=== PATIENT | female | born 1985 | race Caucasian/White ===

== ENCOUNTER 2016-03-26 17:02 | Emergency (ER) | payer BC, OTHER ==
[~2016-03-26] VITALS: Ht 160 cm; Wt 62.2 kg
[~2016-03-26 17:02] MED LIST: ALBUAER2 INH; HYDRELX3 PO; IBUP-1121 PO; KFLS250100 PO
[2016-03-26 17:10] VITALS: TEMP 36.9; Ht 160 cm; Wt 62.2 kg
--- NOTE | 2016-03-26 17:37 | EMERGENCY ROOM VISIT NOTE ---
History Report prepared by Lizzeth: Eugenie Jaime Under the Supervision of: Dr. Rock Perez M.D. First contact with patient: 17:24 Chief Complaint: VAGINAL BLEEDING Stated Complaint: 9.5 WKS PREG,VAG BLEEDING W/CRAMPS History of Present Illness The patient is a 30 year old female who presents to the Emergency Room with complaints of constant vaginal bleeding that started 3.5 hours ago around 1400. The patient states that she bled through one pad and there was some blood on a second one. When the bleeding started, she had severe abdominal pain but she states that the pain is dull now. The patient is 9 weeks and this is her first . She denies any history of miscarriages or abortions. The patient's last normal menstrual period was on January 20. The patient has not received a ultrasound yet, but she did have a positive blood test. Source of History: patient Onset: 3.5 hours ago around 1400 Position: other (vagina) Quality: other (vaginal bleeding) Timing: constant Associated Symptoms: + abdominal pain Review of Systems See HPI for pertinent positives & negatives. A total of 10 systems reviewed and were otherwise negative. Past Medical & Surgical Medical Problems: (1) Asthma Family History Cancer Diabetes mellitus Heart disease Hypertension Social History Smoking Status: Never Smoker Smokeless Tobacco Use: No Alcohol Use: none Marital Status: Housing Status: lives with significant other Current/Historical Medications No Active Prescriptions or Reported Meds Allergies Coded Allergies: No Known Allergies (Verified Allergy, Unknown, 12/15/06) Physical Exam Vital Signs Date Time Temp Pulse Resp B/P Pulse Ox O2 Delivery O2 Flow Rate FiO2 03/26/16 20:15 60 16 106/68 97 03/26/16 19:02 61 03/26/16 18:55 65 18 115/70 100 Room Air 03/26/16 17:10 36.9 67 18 145/81 100 Room Air Physical Exam GENERAL: Patient is a healthy-appearing well-nourished female. HEAD: Normocephalic atraumatic EYES: Ocular movements intact pupils equal and react to light OROPHARYNX mucous membranes are moist no exudates present no erythema or edema present NECK: Supple no nuchal rigidity CHEST: Good equal expansion LUNGS: Clear and equal to auscultation CARDIAC: Normal S1 and S2 ABDOMEN: Soft nontender no guarding BACK: No CVA tenderness EXTREMITIES: No pain upon palpation normal muscle strength in all groups no clubbing cyanosis or edema NEURO: Patient is following commands is answering questions appropriately. Alert and oriented x3 Cranial Nerves 2-12 grossly intact Medical Decision & Procedures ER Provider Diagnostic Interpretation: US results as stated below per my review and radiologist interpretation: ULTRASOUND IMPRESSION: 1. Viable intrauterine gestation with estimated gestational age of 9 weeks and 5 days. Normal heart rate of 164 bpm. 2. Suspected uterine anomaly. The intrauterine gestational sac containing a fetus is located within a suspected right uterine horn and there is fluid within the suspected left uterine horn. A bicornuate uterus is favored although a septate uterus to be difficult to exclude and this should be assessed on subsequent ultrasound. Electronically signed by: Henri Chester M.D. 03/26/2016 6:34 PM Dictated Date/Time: 03/26/2016 6:25 PM Laboratory Results 03/26/16 17:34 Red Blood Count 4.10, Mean Corpuscular Volume 90.2, Mean Corpuscular Hemoglobin 31.2, Mean Corpuscular Hemoglobin Concent 34.6, Mean Platelet Volume 9.9, Neutrophils (%) (Auto) 66.2, Lymphocytes (%) (Auto) 25.3, Monocytes (%) (Auto) 5.9, Eosinophils (%) (Auto) 2.2, Basophils (%) (Auto) 0.2, Neutrophils # (Auto) 6.06, Lymphocytes # (Auto) 2.32, Monocytes # (Auto) 0.54, Eosinophils # (Auto) 0.20, Basophils # (Auto) 0.02 03/26/16 17:34 Test 03/26/16 17:34 03/26/16 17:39 White Blood Count 9.16 K/uL (4.8-10.8) Red Blood Count 4.10 M/uL (4.2-5.4) Hemoglobin 12.8 g/dL (12.0-16.0) Hematocrit 37.0 % (37-47) Mean Corpuscular Volume 90.2 fL (80-100) Mean Corpuscular Hemoglobin 31.2 pg (25-34) Mean Corpuscular Hemoglobin Concent 34.6 g/dl (32-36) Platelet Count 266 K/uL (130-400) Mean Platelet Volume 9.9 fL (7.4-10.4) Neutrophils (%) (Auto) 66.2 % Lymphocytes (%) (Auto) 25.3 % Monocytes (%) (Auto) 5.9 % Eosinophils (%) (Auto) 2.2 % Basophils (%) (Auto) 0.2 % Neutrophils # (Auto) 6.06 K/uL (1.4-6.5) Lymphocytes # (Auto) 2.32 K/uL (1.2-3.4) Monocytes # (Auto) 0.54 K/uL (0.11-0.59) Eosinophils # (Auto) 0.20 K/uL (0-0.5) Basophils # (Auto) 0.02 K/uL (0-0.2) RDW Standard Deviation 43.6 fL (36.4-46.3) RDW Coefficient of Variation 13.2 % (11.5-14.5) Immature Granulocyte % (Auto) 0.2 % Immature Granulocyte # (Auto) 0.02 K/uL (0.00-0.02) Prothrombin Time 11.1 SECONDS (9.0-12.0) Prothromb Time International Ratio 1.0 (0.9-1.1) Activated Partial Thromboplast Time 29.2 SECONDS (21.0-31.0) Partial Thromboplastin Ratio 1.1 Anion Gap 9.0 mmol/L (3-11) Est Creatinine Clear Calc Drug Dose 92.3 ml/min Estimated GFR () 127.2 Estimated GFR (Non- 109.7 BUN/Creatinine Ratio 16.0 (10-20) Calcium Level 8.5 mg/dl (8.5-10.1) Total Bilirubin 0.2 mg/dl (0.2-1) Aspartate Amino Transf (AST/SGOT) 19 U/L (15-37) Alanine Aminotransferase (ALT/SGPT) 15 U/L (12-78) Alkaline Phosphatase 50 U/L (45-117) Total Protein 6.8 gm/dl (6.4-8.2) Albumin 3.5 gm/dl (3.4-5.0) Globulin 3.3 gm/dl (2.5-4.0) Albumin/Globulin Ratio 1.1 (0.9-2) Human Chorionic Gonadotropin, Quant 310349 mIU/mL Urine Color RED Urine Appearance CLEAR (CLEAR) Urine pH 6.5 (4.5-7.5) Urine Specific [place] 1.000 (1.000-1.030) Urine Protein 2+ (NEG) Urine Glucose (UA) NEG (NEG) Urine Ketones NEG (NEG) Urine Occult Blood 3+ (NEG) Urine Nitrite NEG (NEG) Urine Bilirubin NEG (NEG) Urine Urobilinogen NEG (NEG) Urine Leukocyte Esterase SMALL (NEG) Urine WBC (Auto) 5-10 /hpf (0-5) Urine RBC (Auto) >30 /hpf (0-4) Urine Hyaline Casts (Auto) 0 /lpf (0-5) Urine Epithelial Cells (Auto) 10-20 /lpf (0-5) Urine Bacteria (Auto) NEG (NEG) Urine Test POS (NEG) Labs reviewed by ED physician. Medications Administered Medications (Trade) Dose Ordered Sig/Jules Route Start Time Stop Time Status Last Admin Dose Admin Acetaminophen (Tylenol Tab) 1,000 mg NOW STAT PO 03/26/16 19:55 03/26/16 19:56 DC 03/26/16 20:03 1,000 MG ED Course 172: Past medical records reviewed. The patient was evaluated in room A9. A complete history and physical examination was performed. 1853: Upon reexamination the patient is doing well. I discussed results and treatment plan with the patient. She verbalizes agreement and understanding. The patient is ready for discharge. 1858: I discussed the patient's case with Dr. Wilson - OB[employer]. She agreed with the treatment plan and said that the patient is well enough to follow-up in the office. Medical Decision Differential diagnosis: Etiologies such as ectopic , dysfunction uterine bleeding, bleeding dyscrasia, trauma, infection, as well as others were entertained. This is a 30-year-old female who presents emergency Department with vaginal bleeding. The patient is 9 weeks . She is O+. 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 I did discuss these findings with OB who asked that the patient follow-up as an outpatient. I strongly recommended bedrest for the patient while she was continuing to have vaginal bleeding. The patient did receive Tylenol here in the emergency department. Patient and had all their questions answered and will follow-up with OB. Consults Time Called: 1856 Consulting Physician: Dr. Wilson - OB[facility] Returned Call: 1858 I discussed the patient's case with Dr. Wilson - OB-[employer]. She agreed with the treatment plan and said that the patient is well enough to follow-up in the office. Impression Primary Impression: Vaginal bleeding before 22 weeks gestation Scribe Attestation The scribe's documentation has been prepared under my direction and personally reviewed by me in its entirety. I confirm that the note above accurately reflects all work, treatment, procedures, and medical decision making performed by me. Departure Information Dispostion Home / Self-Care Prescriptions No Active Prescriptions or Reported Meds Referrals No Doctor, Assigned (PCP) Forms HOME CARE DOCUMENTATION FORM, IMPORTANT VISIT INFORMATION, WORK / SCHOOL INSTRUCTIONS Patient Instructions Bleeding Early Preg, My [facility] Additional Instructions Bedrest while having vag bleeding Follow up with DR Wilson's office You have been examined and treated today on an emergency basis only. This is not a substitute for, or an effort to provide, complete comprehensive medical care. It is impossible to recognize and treat all injuries or illnesses in a single emergency department visit. It is therefore important that you follow up closely with Dr Roberts. Call as soon as possible for an appointment. Thank you for your time and consideration. I look forward to speaking with you again soon. Please don't hesitate to call us if you have any questions.
[2016-03-26 17:45] LABS: BASO % 0.2 %; BASO ABS # 0.02 K/uL (0-0.2); COMPLETE YES; EOS % 2.2 %; IG% 0.2 %; LYMPH % 25.3 %; LYMPH ABS # 2.32 K/uL (1.2-3.4); MEAN CELL VOLUME 90.2 fL (80-100); MEAN CORPUSCULAR HEMOGLOBIN 31.2 pg (25-34); MEAN CORPUSCULAR HGB CONC 34.6 g/dl (32-36); MEAN PLATELET VOLUME 9.9 fL (7.4-10.4); MONO % 5.9 %; NEUT % 66.2 %; PLATELET COUNT 266 K/uL (130-400); WHITE BLOOD COUNT 9.16 K/uL (4.8-10.8)
[2016-03-26 17:54] LABS: PARTIAL THROMBOPLASTIN RATIO 1.1; PROTHROMBIN TIME (PATIENT) 11.1 SECONDS (9.0-12.0)
[2016-03-26 18:10] LABS: CALCIUM 8.5 mg/dl (8.5-10.1); CREATININE 0.73 mg/dl (0.60-1.20); POTASSIUM 3.4 mmol/L (3.5-5.1)
[2016-03-26 18:12] LABS: ALB/GLOB RATIO 1.1 (0.9-2)
[2016-03-26 18:13] LABS: URINE APPEARANCE CLEAR (CLEAR); URINE BILIRUBIN NEG (NEG); URINE COLOR RED; URINE NITRITE NEG (NEG); URINE PH 6.5 (4.5-7.5); UROBILINOGEN NEG (NEG)
[2016-03-26 18:21] LABS: MANUAL MICROSCOPIC REQUIRED? NO; REVIEW REQ? NO
--- NOTE | 2016-03-26 18:36 | DIAGNOSTIC IMAGING REPORT ---
ULTRASOUND CLINICAL HISTORY: 9.5 weeks . Vaginal bleeding with cramps. COMPARISON STUDY: No previous studies for comparison. TECHNIQUE: Transabdominal sonography of the pelvis was performed. FINDINGS: A suspected uterine anomaly is noted. Specifically, there are 2 apparent uterine horns. This may reflect a bicornuate uterus although a septate uterus would be difficult to exclude. An intrauterine gestational sac containing a pole is noted within the right aspect of the uterus. [place]-rump length measures 2.86 cm which corresponds to an estimated gestational age of 9 weeks and 5 days. heart rate is normal at 164 bpm. There is endometrial thickening and fluid within the suspected left uterine horn. Cervix is closed, measuring approximately 4.1 cm. No adnexal masses were identified. The ovaries not well visualized on this exam. IMPRESSION: 1. Viable intrauterine gestation with estimated gestational age of 9 weeks and 5 days. Normal heart rate of 164 bpm. 2. Suspected uterine anomaly. The intrauterine gestational sac containing a fetus is located within a suspected right uterine horn and there is fluid within the suspected left uterine horn. A bicornuate uterus is favored although a septate uterus to be difficult to exclude and this should be assessed on subsequent ultrasound. Electronically signed by: Henri Chester M.D. 03/26/2016 6:34 PM Dictated Date/Time: 03/26/2016 6:25 PM
[2016-03-26] MEDS ORDERED: ACETAMINOPHEN 500 MG TAB PO STA (19:55)
[2016-03-26 20:15] VITALS: BP 106/68; PULSE 60; O2SAT 97
== END 2016-03-26 20:16 | disposition home or self-care (01) ==
LOC: C.EDB 17:05 → C.EDA 20:16
DX: O20.9 Hemorrhage in early pregnancy, unspecified (principal); Z3A.09 9 weeks gestation of pregnancy; Z80.9 Family history of malignant neoplasm, unspecified; Z83.3 Family history of diabetes mellitus; Z82.49 Family history of ischemic heart disease and other diseases of the circulatory system

== ENCOUNTER 2017-02-09 16:09 | Inpatient (IN) | payer OTHER ==
[~2017-02-09] VITALS: Ht 160 cm; Wt 62.8 kg
[2017-02-09] MEDS ORDERED: OMEG1CAP81 PO (16:59)
[2017-02-09] MEDS ORDERED: PRENTAB26 PO (16:59)
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
[2017-02-09 18:10] LABS: BASO % 0.2 %; BASO ABS # 0.02 K/uL (0-0.2); EOS % 1.3 %; EOS ABS # 0.12 K/uL (0-0.5); HEMATOCRIT 44.2 % (37-47); HEMOGLOBIN 15.3 g/dL (12.0-16.0); IG# 0.02 K/uL (0.00-0.02); LYMPH % 16.9 %; LYMPH ABS # 1.59 K/uL (1.2-3.4); MEAN CELL VOLUME 91.5 fL (80-100); MEAN CORPUSCULAR HEMOGLOBIN 31.7 pg (25-34); MEAN CORPUSCULAR HGB CONC 34.6 g/dl (32-36); MONO % 6.2 %; MONO ABS # 0.58 K/uL (0.11-0.59); NEUT % 75.2 %; NEUT ABS # 7.09 K/uL (1.4-6.5); PLATELET COUNT 227 K/uL (130-400); RED CELL DISTRIBUTION WIDTH CV 12.9 % (11.5-14.5); RED CELL DISTRIBUTION WIDTH SD 43.1 fL (36.4-46.3); WHITE BLOOD COUNT 9.42 K/uL (4.8-10.8)
[2017-02-09 18:30] LABS: CALCIUM 9.4 mg/dl (8.5-10.1); CREATININE 0.83 mg/dl (0.60-1.20); POTASSIUM 3.9 mmol/L (3.5-5.1)
[2017-02-09 18:39] LABS: TOTAL PROTEIN 7.7 gm/dl (6.4-8.2)
[2017-02-09] MEDS ORDERED: hydrOXYzine HCL 25 MG TAB PO PRN ×2 (20:00)
[2017-02-09] MEDS ORDERED: SODIUM CHLORIDE 0.65% NA SOLN 45 ML (OCEAN) PRN (20:00)
[2017-02-09] MEDS ORDERED: ACETAMINOPHEN 325 MG TAB PO PRN (20:00)
[2017-02-09] MEDS ORDERED: ALUMINUM/MAGNESIUM SUSP 30 ML UDC PO PRN (20:00)
[2017-02-09] MEDS ORDERED: MAGNESIUM HYDROXIDE SUSP 30 ML UDC PO PRN (20:00)
[2017-02-09] MEDS ORDERED: BISMUTH SUBSALICYLATE PER ML OMNICELL CHARGE PO PRN (20:00)
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
[2017-02-09 21:00] VITALS: O2SAT 99
[2017-02-09 21:46] VITALS: BP 119/77; PULSE 76; TEMP 36.8; Ht 160 cm; Wt 62.8 kg
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
--- NOTE | 2017-02-10 03:39 | NUR ---
Patient's admission orders were reviewed.
[2017-02-10 06:45] VITALS: BP_SYST 114; BP_SYST 115; BP_DIAS 65; BP_DIAS 73; PULSE 77; PULSE 81; TEMP 36.7
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
[2017-02-10] MEDS ORDERED: OMEGA-3 (PURIFIED FISH OIL) 1 GM CAP PO SCH (09:00)
[2017-02-10] MEDS ORDERED: PRENATAL VITAMIN TAB PO SCH (09:00)
--- NOTE | 2017-02-10 11:08 | NUR ---
Spoke with pt's insurance, who indicated that pt was not eligible for a single case agreement due to closer facilities being in network. They stated that pt has a $600 individual, $1200 family deductible for out of network benefits, as well as 30% coinsurance cost. Potential in network facilities include [facility], [facility], and [facility]. Met with pt to complete the social history and to discuss the insurance. Pt indicated during the social history her family does own guns and they are locked in a safe. She does not have access to the peoples/combination and noted her is responsible with their safety. Pt would like to explore the other hospitals due to financial costs. Her primary choice would be [facility] due to its proximity to her home.
--- NOTE | 2017-02-10 11:53 | NUR ---
Called [facility] to initiate referral. Spoke with JENNIFER Hull, who states the acuity is too high at their facility at this time and cannot accept any patients at this time.
--- NOTE | 2017-02-10 11:54 | NUR ---
Called [facility] to initiate referral. Gave clinical information and will fax referral packet for their review. Will update as information becomes available.
--- NOTE | 2017-02-10 12:19 | NUR ---
Pt has been easily tearful. Did discuss her post depression, lack of sleep and daily headaches. She said her headaches usually start in the morning and get worse as day progresses. She said she will occasionally take OTC medication and eat a piece of chocolate. She said she will have minimal relief. Pt is reluctant to take meds because she is . When given AM meds she doubled check to be sure she was only receiving the fish oil and pre-sherrill. Her affect is flat/withdrawn. She is despondent. Has attended programming. Did discuss importance of her safety and caring for herself so she is able to care for her daughter.
--- NOTE | 2017-02-10 12:48 | NUR ---
Discharge Summary: Pt. requests transfer to in network facility. Pt. accepted at [facility]. Secure transportation will be provided.
--- NOTE | 2017-02-10 12:59 | Discharge Instructions ---
Discharge Instructions Admission Reason for Admission: Depression Affecting , Discharge Discharge Diagnosis / Problem: post depression Discharge Goals Goal(s): Decrease discomfort, Improve disease control Activity Recommendations Activity Limitations: resume your previous activity . Instructions / Follow-Up Instructions / Follow-Up . SPECIAL CARE INSTRUCTIONS: 1. Follow through with your scheduled aftercare appointments. If unable to keep an appointment, please call to reschedule. 2. Take your medication only as prescribed. Medication should not be changed or stopped without the approval of your doctor. In the event of worsening symptoms or concerns about side effects, contact your doctor immediately. 3. Utilize new healthy coping skills, anger management skills, and stress management skills learned during your hospitalization. Journal feelings and process them with a support person. Identify stressors or situations that may result in relapse, deterioration or inappropriate behaviors and develop a plan to deal with those issues. 4. If your coping skills are ineffective and you are in crisis, contact your outpatient providers for direction. If unable to reach your providers, please call the CAN HELP LINE AT or go to the closest Emergency Room. 5. Avoid alcohol and un-prescribed drugs. 6. You have been provided with the Mental Health Advance Directives Pamphlet for your review. AFTERCARE APPOINTMENTS: * Please call your insurance company prior to your scheduled appointment to confirm your aftercare providers are covered. Take your insurance information to your appointments. . Diet Recommendations Diet(s): Regular Diet Medical Emergencies . Who to Call and When: Medical Emergencies: If at any time you feel your situation is an emergency, please call 911 immediately. . Non-Emergent Contact Non-Emergency issues call your: Psychiatrist Past History Medical & Surgical History: (1) Asthma . "Provider Documentation" section prepared by Nicole Wyatt. . VTE Core Measure Inpt VTE Proph given/why not?: Treatment not indicated [place] Drug Monitoring Program Search Results: no issues identified
--- NOTE | 2017-02-10 13:46 | NUR ---
Insurance Pre-certification completed for lateral transfer to [facility]. Spoke with Delfin Packer Authorized 5 days with a review date of 02/15/17. Review contact is Merlyn Piper @ ext [phone]. Authorization #: [id number]. Called aluminum siding applicator Diane at [facility] and informed her of these details. Was provided a room # to provide to Admissions for transportation. Arlyn also stated that the transportation should take the patient to the ED Registration Desk before heading to the unit.
--- NOTE | 2017-02-10 14:18 | NUR ---
Spoke with Merlyn from Admissions to provide information for lateral transfer to [facility]. Admissions to call back with transportation information which will be relayed to accepting facility.
--- NOTE | 2017-02-10 14:52 | NUR ---
Received call from Admissions that the transportation company [employer] out of [place] to car pick up driver patient at 7PM to transport to [facility].
[2017-02-10 15:51] VITALS: BP 115/73; PULSE 81; TEMP 36.7; O2SAT 99
--- NOTE | 2017-02-10 16:25 | NUR ---
DISCHARGE NOTE: Pt discharged at this time to [facility] ambulance crew to be transferred to [facility] due to her insurance being out of network. Pt's belongings were returned to her, and she was given her breast milk that was saved for her as well. Pt's is en route to [facility] with their infant daughter. Pt verbalized understanding of having to be transferred.
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
== END 2017-02-10 16:25 | DRG 885 ==
LOC: C.EDB 16:11 → C.MHU 19:55 → ENRESERV 20:09
PROVIDERS: ADMIT Psychiatry & Neurology Child & Adolescent Psychiatry; ATTEND Psychiatry & Neurology Child & Adolescent Psychiatry
DX: F33.2 Major depressive disorder, recurrent severe without psychotic features (principal); R45.851 Suicidal ideations